=== PATIENT | female | born 1980 | race Caucasian/White ===

== ENCOUNTER → 2020-09-29 | Outpatient (CLI) | payer BC, OTHER ==
[~2020-09-29] MED LIST: CRESTOR40 MG PO; CYCLOBENZAPRINE5 MG PO; ELIQUIS5 MG PO; HYDROCODONE-AC1 EACH PO; LASIX20 MG PO; LOVENOX60 MG/0.6 SQ; MIRALAX17 GM PO; MULTIVITAMIN1 EACH PO; POTASSIUM CHLO20 ME1 PO; PRILOSEC OTC20 MG PO; THIAMINE HCL100 MG PO; VITAMIN B-121000 MC1 PO; VITAMIN C500 M4 PO; VITAMIN D3125 MCG PO; ZOFRAN 4 MG TAB4 MG PO
[2020-09-29 10:05] LABS: RED BLOOD COUNT 4.25 M/UL (4.00-5.10); WHITE BLOOD COUNT 8.6 K/UL (4.5-11.0)
[2020-09-29 10:22] LABS: BUN/CREATININE RATIO 28 (0-10)
== END ==
LOC: OPSV2 09-22 09:30
PROVIDERS: Obstetrics & Gynecology
DX: Z01.812 Encounter for preprocedural laboratory examination (principal); N93.8 Other specified abnormal uterine and vaginal bleeding; Z88.1 Allergy status to other antibiotic agents; Z88.5 Allergy status to narcotic agent
CPT/HCPCS: 36415; 80048; 81001; 85025

== ENCOUNTER 2020-10-01 06:31 | Day surgery (SDC) | payer BC, OTHER ==
[2020-10-01] MEDS ORDERED: ELIQUIS5 MG PO (07:20)
[2020-10-01] MEDS ORDERED: MIRALAX17 GM PO (07:20)
[2020-10-01] MEDS ORDERED: CYCLOBENZAPRINE5 MG PO (07:20)
[2020-10-01] MEDS ORDERED: ZOFRAN 4 MG TAB4 MG PO (07:21)
[2020-10-01] MEDS ORDERED: VITAMIN B-121000 MC1 PO (07:21)
[2020-10-01] MEDS ORDERED: CRESTOR40 MG PO (07:22)
[2020-10-01] MEDS ORDERED: PRILOSEC OTC20 MG PO (07:22)
[2020-10-01] MEDS ORDERED: LOVENOX60 MG/0.6 SQ (07:22)
[2020-10-01] MEDS ORDERED: VITAMIN C500 M4 PO (07:22)
[2020-10-01] MEDS ORDERED: VITAMIN D3125 MCG PO (07:23)
[2020-10-01] MEDS ORDERED: LASIX20 MG PO (07:23)
[2020-10-01] MEDS ORDERED: MULTIVITAMIN1 EACH PO (07:23)
[2020-10-01] MEDS ORDERED: THIAMINE HCL100 MG PO (07:26)
[2020-10-01] MEDS ORDERED: POTASSIUM CHLO20 ME1 PO (07:26)
[2020-10-01] MEDS ORDERED: HYDROCODONE-AC1 EACH PO (12:22)
== END 2020-10-01 11:00 | disposition home or self-care (01) ==
LOC: OR 06:31
DX: N93.8 Other specified abnormal uterine and vaginal bleeding (principal); I10 Essential (primary) hypertension; R60.9 Edema, unspecified; K21.9 Gastro-esophageal reflux disease without esophagitis; Z98.61 Coronary angioplasty status; Z88.2 Allergy status to sulfonamides; Z88.8 Allergy status to other drugs, medicaments and biological substances; Z82.49 Family history of ischemic heart disease and other diseases of the circulatory system; Z83.3 Family history of diabetes mellitus; Z80.9 Family history of malignant neoplasm, unspecified; Z87.891 Personal history of nicotine dependence; Z79.899 Other long term (current) drug therapy
CPT/HCPCS: 84703; J1100; J2001; J2250; J2405; J2704; J3010; J7030; J7120